=== PATIENT | female | born 1995 | race Caucasian/White ===

== ENCOUNTER → 2023-03-29 08:55 | Outpatient (REF) | payer BC, SELFPAY | LOC: HWRAD 08:55 | PROVIDERS: ATTENDING PHYSICIAN Nurse Practitioner Adult Health; FAMILY PHYSICIAN Family Medicine | DX: R10.2 Pelvic and perineal pain (principal) | CPT/HCPCS: 76830; 76856 ==

== ENCOUNTER → 2023-09-13 08:34 | Outpatient (REF) | payer BC, SELFPAY | LOC: WDC 08:34 | PROVIDERS: ATTENDING PHYSICIAN Nurse Practitioner Adult Health | DX: N64.9 Disorder of breast, unspecified (principal) | CPT/HCPCS: 76642 ==

== ENCOUNTER 2024-07-23 11:44 | Emergency (ER) | payer BC, SELFPAY ==
[2024-07-23 11:50] VITALS: BP 135/83
--- NOTE | 2024-07-23 13:03 | ED.GENMED ---
History of Present Illness
General
Chief Complaint: Problems
Source: patient
Exam Limitations: none
Time Seen by Provider: 07/23/24 12:42
History of Present Illness
History of Present Illness:
28yoF currently 5 weeks with no significant past medical history presenting with her for evaluation of pelvic pain. She reports that she stretched yesterday and felt a dull pain in her right lower pelvic region. Pain has been
intermittent since yesterday and is worse with certain movements. She has had similar symptoms in the past which she thought were from a pulled muscle. She is otherwise asymptomatic and denies any vaginal bleeding, vaginal discharge, dysuria,
fevers, vomiting. No previous abdominal surgeries. She has her initial OB appointment scheduled on 08/01/24 at [facility].
Past History
Past History
ED Past Medical History: None
ED Past Surgical History: None
Social History
Tobacco: Non-smoker
Alcohol: Occasional
Drug: None
Phy Exam
General Physical Exam
General Presentation: well appearing and no apparent distress
General Skin: warm and dry
General Habitus: normal
ENT Exam
ENT Exam: normocephalic
Pulmonary Exam
Pulmonary Exam: no respiratory distress
Gastrointestinal Exam
Gastrointestinal Exam: soft, non distended and other (Minimal tenderness in the R lower pelvic region. Abdomen soft, non-distended. No rebound or guarding.)
Neurological Exam
Neurological Exam: alert
Bing Coma Scale
Eye Opening: Spontaneous
Verbal Response: Oriented
Motor Response: Obeys Commands
GCS Total Score: 15
Skin Exam
Skin Exam: normal color and warm/dry
Psychiatric Exam
Psychiatric Exam: normal mood/affect
Course
Orders/Labs/Results
Orders:
Orders
07/23/24 13:02
US W Transvaginal Urgent
Reason For Exam: RLQ pain, 5 weeks
07/23/24 13:05
Blood Group&Type Urgent
Beta HCG Quantitative Urgent
Is this a screen?: No
Complete Blood Count/With Diff Urgent
Comprehensive Metabolic Panel Urgent
07/23/24 15:12
Urinalysis Reflex To Culture Urgent
Date Specimen was Collected: 07/23/24
Time Specimen was Collected: 15:10
Abnormal Lab Results
07/23/24
13:05
RDW 11.4 L %
(11.5-14.5)
Chloride 108 H mmol/L
(98-107)
Creatinine 0.5 L mg/dL
(0.6-1.0)
Glucose 103 H mg/dl
(70-99)
ALT 38 H U/L
(0-35)
07/23/24 13:05
07/23/24 13:05
Vital Signs
Initial and Last Documented VS:
Initial Vital Signs
Temp Pulse Resp BP Pulse Ox
97.8 F 69 18 135/83 100
07/23/24 11:50 07/23/24 11:50 07/23/24 11:50 07/23/24 11:50 07/23/24 11:50
Last Documented Vital Signs
Temp Pulse Resp BP Pulse Ox
98.2 F 69 16 115/71 99
07/23/24 15:26 07/23/24 15:26 07/23/24 15:26 07/23/24 15:26 07/23/24 15:26
Information
Weeks gestation: N/A
Location: N/A
MDM/Problems Addressed
Differential Diagnosis Includes:
28yoF here with R lower pelvic pain x 1 day. C/o dull pain worse with movement. Currently 5 weeks . Denies vaginal bleeding. VSS. Minimal tenderness on exam. Differential diagnosis includes but is not limited to: musculoskeletal, ectopic
, doubt appendicitis
Initial ED plan: Check CBC, CMP, quantitative HCG, UA, and pelvic ultrasound.
*Critical Care Note
Total Time (30-74mins, 75-104mins- exclusive of procedures): Not Applicable
Update Note
Update Note:
Quantitative HCG is 1600. Patient had HCG tested last week which was reportedly in the 200s. No signs of infection on urinalysis. Ultrasound shows a small cystic mass in the endometrium possibly an early intrauterine . Findings discussed
with patient and . Discussed possibilities including very early and ectopic . Advised f/u with OBGYN for serial HCG checks and repeat ultrasound in 1-2 weeks. Strict ED return precautions reviewed. Patient discharged in
stable condition.
ED Attending Note
-
Portions of this chart may have been created with voice recognition software.� Occasional wrong word or��sound alike� substitutions may have occurred due to the inherent limitations of voice recognition software.
Discharge Plan
Departure
Patient Disposition: Home (Routine Discharge)
Date of Disposition: 07/23/24
Time of Disposition: 15:02
Patient with high blood pressure during this ER visit?: No
Discharge Problem:
of unknown anatomic location, Abdominal pain in early
Instructions: Stomach Pain in Early
Prescriptions:
No Action
1 mg Tablet
1 tab PO DAILY
Referrals:
UNKNOWN - PT NOT,INTERVIEWE [Family Provider]
Activity Restrictions/Additional Instructions:
Please follow-up with your OBGYN. You will need repeat HCG testing and another ultrasound in 1-2 weeks.
Return to the ER with any worsening symptoms including severe pain, dizziness, passing out, or vaginal bleeding.
Interventions
Interventions:
*Risk Screen - Suicide Last Done: 07/23/24 11:50
*General Assessment Last Done: 07/23/24 11:50
*Neglect/Abuse Screening Last Done: 07/23/24 11:50
*ED- Fall Risk Assessment Last Done: 07/23/24 14:02
*ED COVID-19 Vaccine History Last Done: 07/23/24 14:02
*Nursing Disposition Last Done: 07/23/24 15:30
ED-Female Genitourinary Assessment Last Done: 07/23/24 15:26
Discharge Date and Time
Discharge Date/Time: 07/23/24 15:30
Print Language: [email or web address]
[2024-07-23 13:23] LABS: % Basophils 0.8 % (0-2); % Eosinophils 2.4 % (0-6); % Immature Granulocytes 0.3 % (0-0.5); % Lymphocytes 26.8 % (20.5-51.1); % Monocytes 6.3 % (1.7-9.3); % Neutrophils 63.4 % (42.2-75.2); Absolute Basophils 0.1 10^3/uL (0-0.2); Absolute Eosinophils 0.2 10^3/uL (0-0.7); Absolute Lymphocytes 1.8 10^3/uL (1.2-3.4); Absolute Monocytes 0.4 10^3/uL (0.1-0.6); Absolute Neutrophils 4.2 10^3/uL (1.4-6.5); Hematocrit 40.5 % (37.0-47.0); Hemoglobin 14.1 g/dL (12.0-16.0); Mean Corp Hgb Conc. 34.8 g/dL (33.0-37.0); Mean Corpuscular Hgb 30.7 pg (27.0-31.0); Mean Platelet Volume 9.7 fL (7.4-10.4); Nucleated Red Blood Cells % 0 %; Platelet Count 229 10^3/uL (130-400); Red Cell Dist. Width 11.4 % (11.5-14.5); White Blood Cell Count 6.7 10^3/uL (4.8-10.8)
[2024-07-23 13:42] LABS: ALT (SGPT) 38 U/L (0-35); AST (SGOT) 34 U/L (14-36); Albumin 4.3 g/dl (3.5-5.0); Alkaline Phosphatase 59 U/L (38-126); Blood Urea Nitrogen 8 mg/dl (7-17); Calcium 9.3 mg/dl (8.4-10.2); Carbon Dioxide 27 mmol/L (22-30); Chloride 108 mmol/L (98-107); Glucose 103 mg/dl (70-99); Potassium 4.2 mmol/L (3.5-5.1); Sodium 137 mmol/L (135-145); Total Bilirubin 0.6 mg/dl (0.2-1.3); Total Protein 6.9 g/dl (6.3-8.2); eGFR > 60.00
[2024-07-23 15:11] VITALS: BMI 21.9
[2024-07-23 15:26] VITALS: BP 115/71
[2024-07-23 15:31] LABS: Urine Albumin Negative (Neg - Trace); Urine Bilirubin Negative (Negative); Urine Character Clear (Clear); Urine Color Yellow; Urine Glucose Negative (Negative); Urine Ketone Negative (Negative); Urine Leukocyte Negative (Negative); Urine Nitrite Negative (Negative); Urine Occult Blood Negative (Negative); Urine Specific Gravity 1.005 (<1.030); Urine Urobilinogen Negative (Neg - 1+)
== END 2024-07-23 15:30 | disposition home or self-care (01) ==
LOC: EMR 11:44
PROVIDERS: Physician Assistant; EMERGENCY PHYSICIAN Emergency Medicine
DX: O26.891 Other specified pregnancy related conditions, first trimester (principal); Z3A.01 Less than 8 weeks gestation of pregnancy; R10.2 Pelvic and perineal pain; Z88.8 Allergy status to other drugs, medicaments and biological substances
CPT/HCPCS: 99284; 76801; 76817; 80053; 81003; 84702; 85025; 86900; 86901

== ENCOUNTER 2024-11-19 18:31 | Emergency (ER) | payer BC, SELFPAY ==
[2024-11-19 18:41] VITALS: BP 114/77
[2024-11-19 20:38] VITALS: BMI 23.8
--- NOTE | 2024-11-19 21:41 | ED.MUSCINJ ---
HPI-Injury
General
Chief Complaint: Extremity Pain (non-traumatic)
Source: patient
Exam Limitations: none
Time Seen by Provider: 11/19/24 19:29
Nursing documentation reviewed up to this point in time: agreed with
History of Present Illness-Injury
Is this injury a work related problem?: No
Is pt an associate of [facility]?: No
Initial Injury comments:
Patient to ED wtih report of intermittent muscle cramping to left calf. Symptoms started last PM. No prior history of same. No redness or swelling to leg. No SOB. SHe is approx 20weeks . Brought to ED by spouse for eval
Past History
Past History
ED Past Medical History: None
ED Past Surgical History: None
Social History
Tobacco: Non-smoker
Alcohol: Occasional
Drug: None
Review of Systems
Review of Systems
Allergies reviewed?: Yes
All Other Systems: ROS reviewed and negative except as documented in HPI and ROS
Constitutional: Reports no symptoms
EENT: Reports no symptoms
Respiratory: Reports no symptoms
Cardiac: Reports no symptoms
ABD/GI: Reports no symptoms
Musculoskeletal: Reports other (muscle cramping, calf pain)
Skin: Reports no symptoms
Neurological: Reports no symptoms
Psychiatric: Reports no symptoms
Musculoskeletal Injury Exam
Musculoskeletal Injury Exam
Left calf:
Pain with Movement?: Mild
Tender to palpation?: None
Soft tissue swelling?: None
External deformity and angulation?: None
Joint effusion?: None
Contusion?: None
Hematoma-local bleeding into tissue?: None
Strain- Sprain- Tear (Connective tissue injury)?: None
Crepitus with movement?: No
Joint instability?: No
Malalignment/deformity?: No
Range of motion: Full
Distal skin color and temperature: normal-warm & good color
Capillary Refill: normal
Normal distal neurovascular exam?: Yes
Peripheral Pulses: posterior tibial (left): 3+ and dorsalis pedis (left): 3+
Phy Exam
General Physical Exam
General Presentation: well appearing and no apparent distress
General age: appears stated age
General Skin: warm and dry
General Habitus: normal
General Mental: alert
Musculoskeletal Exam
Musculoskeletal Exam: full ROM and neuro vasc intact
Skin Exam
Skin Exam: normal color, warm/dry and no rash
Psychiatric Exam
Psychiatric Exam: normal mood/affect
Injury Course
Orders/Labs/Results
Orders:
Orders
11/19/24 19:27
US Periph Venous LOWER Ext LT Urgent
Comment:
Reason For Exam: L posterior knee pain, 22 weeks
*Radiology
Radiology exam reviewed: radiology read reviewed
*Pulse Oximetry
SaO2: 97
Oxygen Mode of Delivery: Room air
Patient hypoxic: no
*Critical Care Note
Total Time (30-74mins, 75-104mins- exclusive of procedures): Not Applicable
Update Note
Update Note:
Patient to ED with muscle cramps, pain to left calf. Symptoms started yesterday. LLE neurovasc intact. US neg for DVT. No redness or swelling to leg. SHe is ambulating without difficulty. No complaints (no abd.pain/cramping, back pain,
vaginal bleeding). WIll discharge home and she will follow upw tih PCP. Given instructions on s/s to return to ED and she is agreeable to plan
ED Attending Note
-
Portions of this chart may have been created with voice recognition software.� Occasional wrong word or��sound alike� substitutions may have occurred due to the inherent limitations of voice recognition software.
Discharge Plan
Departure
Patient Disposition: Home (Routine Discharge)
Date of Disposition: 11/19/24
Time of Disposition: 22:25
Patient with high blood pressure during this ER visit?: No
Condition: Good
Covid-19: Not Applicable
Discharge Problem:
Muscle cramp
Instructions: Muscle spasms (muscle cramps)
Prescriptions:
No Action
1 mg Tablet
1 tab PO DAILY
Referrals:
Yvrose Rodriguez MD [Family Provider, Family Practice] - Follow up in 2-3 days
Interventions
Interventions:
*Risk Screen - Suicide Last Done: 11/19/24 18:41
*General Assessment Last Done: 11/19/24 20:39
*Neglect/Abuse Screening Last Done: 11/19/24 20:39
*ED- Fall Risk Assessment Last Done: 11/19/24 20:39
*ED COVID-19 Vaccine History Last Done: 11/19/24 20:39
ED-Skin Assessment Last Done: 11/19/24 20:39
ED-Peripheral Vascular Assessment Last Done: 11/19/24 20:39
ED-Musculoskeletal Assessment Last Done: 11/19/24 20:39
Discharge Date and Time
Print Language: PORTUGUESE
[2024-11-19 22:27] VITALS: BP 114/62
== END 2024-11-19 22:31 | disposition home or self-care (01) ==
LOC: EMR 18:31
PROVIDERS: EMERGENCY PHYSICIAN Emergency Medicine; FAMILY PHYSICIAN Family Medicine
DX: O99.891 Other specified diseases and conditions complicating pregnancy (principal); R25.2 Cramp and spasm; M79.662 Pain in left lower leg; Z3A.22 22 weeks gestation of pregnancy
CPT/HCPCS: 99284; 93971